=== PATIENT | male | born 1940 | race Caucasian/White ===

== ENCOUNTER 2016-07-27 14:57 | Inpatient (IN) | payer MEDICARE, MEDICAID ==
[2016-07-27 16:19] LABS: Hematocrit 48 % (42-52); Hemoglobin 16.2 g/dl (14.0-18.0); Mean Corpuscular HGB Conc 34 g/dl (31-36); Mean Corpuscular Hemoglobin 30 pg (27-31); Mean Corpuscular Volume 89 fL (80-94); Mean Platelet Volume 9 um3 (7.4-10.4); Red Blood Count 5.43 10^6/ul (4.0-5.4); Red Cell Distribution Width 14 % (10.5-15); White Blood Count 8.2 10^3/ul (3.5-10.8)
[2016-07-27 16:41] LABS: Albumin 3.6 g/dL (3.2-5.2); BUN/Creatinine Ratio 18.5 (8-20); C Reactive Protein 15.17 mg/L (< 5.00); EGFR African American 103.4 (>60); EGFR Non-African American 80.4 (>60); Globulin 3.4 g/dL (2-4); Potassium 3.3 mmol/L (3.5-5.0); Total Bilirubin 1.1 mg/dL (0.2-1.0)
[2016-07-27 16:45] LABS: Troponin I 1.19 ng/mL (<0.04)
--- NOTE | 2016-07-27 18:18 | RAD ---
Indication: Chest pain. Bilateral lower leg edema. Single frontal view of the chest performed at 1755 hours was reviewed. No prior study is available for comparison. No mediastinal shift is noted. Heart is of normal size and configuration. There may be a small right pleural effusion noted. No alveolar consolidation is noted. IMPRESSION: LIKELY RIGHT PLEURAL EFFUSION.
--- NOTE | 2016-07-27 19:30 | RAD ---
Indication: Bilateral Leg edema. Duplex Doppler sonography of the deep venous system of both lower extremities was performed. Bilaterally the common femoral veins, proximal greater saphenous veins, proximal deep femoral veins, femoral veins, popliteal veins, posterior tibial veins and peroneal veins appear patent and compressible. IMPRESSION: NO EVIDENCE OF DEEP VENOUS THROMBOSIS OF EITHER LOWER EXTREMITY IS PRESENT.
--- NOTE | 2016-07-27 20:36 | ED ---
Virgilio Garcia Billy, scribed for Jeison Miranda MD on 07/27/16 at 1753 . Lower Extremity - HPI Summary HPI Summary: Patient is a 75 year-old male coming to [facility] presenting with constant bilateral extremity edema for 3 days. Nothing makes his symptoms better/worse. Denies any fevers or chills. Denies chest pain. Patient had a recent pulmonary embolism and is currently taking Xarelto. Recent diagnosis of pneumonia, treated and hospitalized in [place]. Patient also takes Lasix, potassium, Protonix, and was recently prescribed Keflex by his PCP. Patient was treated with Levaquin initially, but there was concern that his increased lower extremity swelling was related to his Levaquin treatment, which prompted the switch to Keflex. He also recently switched from Nexium to Protonix. - History of Current Complaint Chief Complaint: EDExtremityLower Stated Complaint: SWOLLEN LEGS Time Seen by Provider: 07/27/16 17:25 Hx Obtained From: Patient Mechanism Of Injury: Unknown Onset of Pain: Days Severity Initially: Moderate Severity Currently: Moderate Timing: Constant Location: Is Discrete @ - bilateral Associated Signs And Symptoms: Positive: Swelling Aggravating Factor(s): Nothing Alleviating Factor(s): Nothing - Allergies/Home Medications Allergies/Adverse Reactions: Allergies Allergy/AdvReac Type Severity Reaction Status Date / Time No Known Allergies Allergy Verified 11/30/14 12:36 PMH/Surg Hx/FS Hx/Imm Hx Endocrine/Hematology History: Denies: Hx Diabetes Respiratory History: Reports: Hx Pneumonia, Hx Pulmonary Embolism - Cancer History Cancer Type, Location and Year: melanoma about 4 years ago Infectious Disease History: No Infectious Disease History: Denies: Traveled Outside the [place] in Last 30 Days - Family History Family History: No FHx of blood clots. - Social History Alcohol Use: None Substance Use Type: Reports: None Smoking Status (MU): Never Smoked Tobacco Review of Systems Negative: Fever, Chills Negative: Chest Pain Positive: Edema All Other Systems Reviewed And Are Negative: Yes Physical Exam Triage Information Reviewed: Yes Vital Signs On Initial Exam: Initial Vitals Temp Pulse Resp BP Pulse Ox 97.2 F 98 18 129/70 98 07/27/16 15:02 07/27/16 15:02 07/27/16 15:02 07/27/16 15:02 02/23/17 15:02 Vital Signs Reviewed: Yes Appearance: Positive: Well-Appearing, No Pain Distress Skin: Positive: Warm, Skin Color Reflects Adequate Perfusion, Weeping Skin/ Lesions - Weeping bilat lower extremity, Erythema @ - Bilat lower extremity, L>R Head/Face: Positive: Normal Head/Face Inspection Eyes: Positive: EOMI, QUOC Neck: Positive: Supple, Nontender Respiratory/Lung Sounds: Positive: Clear to Auscultation, Breath Sounds Present Cardiovascular: Positive: RRR Abdomen Description: Positive: Nontender, Soft Musculoskeletal: Positive: Edema Left - Extensive lower extremity edema, Edema Right - Extensive lower extremity edema Neurological: Positive: Normal, Sensory/Motor Intact, Alert, Oriented to Person Place, Time Psychiatric: Positive: Affect/Mood Appropriate Diagnostics - Vital Signs Vital Signs Temp Pulse Resp BP Pulse Ox 07/27/16 16:18 98.9 F 58 18 102/65 98 07/27/16 15:02 97.2 F 98 18 129/70 98 - Laboratory Lab Results: Lab Results 07/27/16 07/27/16 07/27/16 Range/Units 16:05 16:05 16:05 WBC 8.2 (3.5-10.8) 10^3/ul RBC 5.43 H (4.0-5.4) 10^6/ul Hgb 16.2 (14.0-18.0) g/dl Hct 48 (42-52) % MCV 89 (80-94) fL MCH 30 (27-31) pg MCHC 34 (31-36) g/dl RDW 14 (10.5-15) % Plt Count 284 (150-450) 10^3/ul MPV 9 (7.4-10.4) um3 Neut % (Auto) 77.0 (38-83) % Lymph % (Auto) 13.9 L (25-47) % [place] % (Auto) 7.6 (1-9) % Eos % (Auto) 0.6 (0-6) % Baso % (Auto) 0.9 (0-2) % Absolute Neuts (auto) 6.3 (1.5-7.7) 10^3/ul Absolute Lymphs (auto) 1.1 (1.0-4.8) 10^3/ul Absolute Monos (auto) 0.6 (0-0.8) 10^3/ul Absolute Eos (auto) 0.1 (0-0.6) 10^3/ul Absolute Basos (auto) 0.1 (0-0.2) 10^3/ul Absolute Nucleated RBC 0.01 10^3/ul Nucleated RBC % 0.1 INR (Anticoag Therapy) 1.56 H (0.89-1.11) APTT 34.5 (26.0-36.3) seconds Sodium 135 (133-145) mmol/L Potassium 3.3 L (3.5-5.0) mmol/L Chloride 92 L (101-111) mmol/L Carbon Dioxide 34 H (22-32) mmol/L Anion Gap 9 (2-11) mmol/L BUN 17 (6-24) mg/dL Creatinine 0.92 (0.67-1.17) mg/dL Est GFR ( Amer) 103.4 (>60) Est GFR (Non-Af Amer) 80.4 (>60) BUN/Creatinine Ratio 18.5 (8-20) Glucose 140 H (70-100) mg/dL Lactic Acid (0.5-2.0) mmol/L Calcium 9.0 (8.6-10.3) mg/dL Total Bilirubin 1.10 H (0.2-1.0) mg/dL AST 34 (13-39) U/L ALT 38 (7-52) U/L Alkaline Phosphatase 104 (34-104) U/L Troponin I 1.19 H* (<0.04) ng/mL C-Reactive Protein 15.17 H (< 5.00) mg/L B-Natriuretic Peptide ( - 100) pg/mL Total Protein 7.0 (6.4-8.9) g/dL Albumin 3.6 (3.2-5.2) g/dL Globulin 3.4 (2-4) g/dL Albumin/Globulin Ratio 1.1 (1-3) 07/27/16 07/27/16 Range/Units 16:05 16:05 WBC (3.5-10.8) 10^3/ul RBC (4.0-5.4) 10^6/ul Hgb (14.0-18.0) g/dl Hct (42-52) % MCV (80-94) fL MCH (27-31) pg MCHC (31-36) g/dl RDW (10.5-15) % Plt Count (150-450) 10^3/ul MPV (7.4-10.4) um3 Neut % (Auto) (38-83) % Lymph % (Auto) (25-47) % [place] % (Auto) (1-9) % Eos % (Auto) (0-6) % Baso % (Auto) (0-2) % Absolute Neuts (auto) (1.5-7.7) 10^3/ul Absolute Lymphs (auto) (1.0-4.8) 10^3/ul Absolute Monos (auto) (0-0.8) 10^3/ul Absolute Eos (auto) (0-0.6) 10^3/ul Absolute Basos (auto) (0-0.2) 10^3/ul Absolute Nucleated RBC 10^3/ul Nucleated RBC % INR (Anticoag Therapy) (0.89-1.11) APTT (26.0-36.3) seconds Sodium (133-145) mmol/L Potassium (3.5-5.0) mmol/L Chloride (101-111) mmol/L Carbon Dioxide (22-32) mmol/L Anion Gap (2-11) mmol/L BUN (6-24) mg/dL Creatinine (0.67-1.17) mg/dL Est GFR ( Amer) (>60) Est GFR (Non-Af Amer) (>60) BUN/Creatinine Ratio (8-20) Glucose (70-100) mg/dL Lactic Acid 1.9 (0.5-2.0) mmol/L Calcium (8.6-10.3) mg/dL Total Bilirubin (0.2-1.0) mg/dL AST (13-39) U/L ALT (7-52) U/L Alkaline Phosphatase (34-104) U/L Troponin I (<0.04) ng/mL C-Reactive Protein (< 5.00) mg/L B-Natriuretic Peptide 1509 H ( - 100) pg/mL Total Protein (6.4-8.9) g/dL Albumin (3.2-5.2) g/dL Globulin (2-4) g/dL Albumin/Globulin Ratio (1-3) Result Diagrams: 02/23/17 16:05 07/27/16 16:05 Lab Statement: Any lab studies that have been ordered have been reviewed, and results considered in the medical decision making process. - Radiology CXR Radiology Interpretation Completed By: Radiologist - Likely right pleural effusion. - Ultrasound No standard instances Ultrasound Interpretation Completed By: Radiologist - LOWER EXTREMITY ULTRASOUND : NO EVIDENCE OF DEEP VENOUS THROMBOSIS OF EITHER LOWER EXTREMITY IS PRESENT. - EKG 1729 EKG Interpretation: NSR 98 bpm, TWI in V3-V6, no ectopy. Lower Extremity Course/Dx - Course Assessment/Plan: ADMIT HOSPITALIST STABLE. - Diagnoses Provider Diagnoses: Troponin level elevated, Edema, CHF (congestive heart failure) Discharge - Discharge Plan Condition: Stable Disposition: ADMITTED TO [facility] Referrals: No Primary Care Phys,NOPCP [Primary Care Provider] - The documentation as recorded by the Virgilio null Billy accurately reflects the service I personally performed and the decisions made by me, Jeison Miranda MD.
[2016-07-27] MEDS ORDERED: Furosemide IV* 10 MG/ML 10 ML VIAL (100 MG) IV ONE (20:44)
[2016-07-27] MEDS ORDERED: Acetaminophen TAB* 325 MG PO PRN (20:52)
[2016-07-27] MEDS ORDERED: Cephalexin CAP* 500 MG PO SCH (21:00)
[2016-07-27] MEDS ORDERED: Furosemide TAB* 40 MG PO SCH (21:00)
[2016-07-27] MEDS ORDERED: Aspirin EC TAB* 325 MG PO ONE (21:07)
[2016-07-27] MEDS: ceFAZolin 1 GM in Dextrose (*) 1 GM/50 ML BAG IVPB SCH (21:15)
[2016-07-27] MEDS: Rivaroxaban TAB(*) 15 MG PO SCH (23:33)
--- NOTE | 2016-07-27 23:42 | HP ---
HOSPITAL MEDICINE HISTORY AND PHYSICAL: DATE OF ADMISSION: 07/27/16 PRIMARY CARE PHYSICIAN: Dr. Adair. ATTENDING PHYSICIAN: Carlos Zapata MD *(dictation provided by Karen Patel NP). CHIEF COMPLAINT: Bilateral lower extremity swelling and redness. HISTORY OF PRESENT ILLNESS: Mr. Castaneda is a 75-year-old male who was otherwise healthy up until July of this year at which time, he was admitted to [facility] on 07/15/16 for pneumonia. The patient states he was in the hospital for 4 days. Following the hospital, he was initially treated for pneumonia, but for reasons that were not clear to him there was suspicion for a clot in the lung and he did go in for a CTA of the chest, which did show pulmonary emboli. The patient was ultimately started on Xarelto and discharged to home to follow up with a automotive dismantler and his primary care physician. The patient states when he was discharged in the hospital he was feeling at "about 75% of baseline." He did have pain in his lower extremities, but did not notice swelling. Mr. Castaneda states he did follow up with the automotive dismantler and with his primary care physician. He saw his primary care physician on 07/21/16, by which time he had significant swelling in bilateral lower extremities as well as erythema and clear weeping drainage. The primary care physician started him on cephalexin and furosemide. When the furosemide was not effective in decreasing the swelling in the legs, this was increased to twice daily per the patient's report. The patient has seen no improvement in the swelling of his legs or the redness or drainage. He states that he does try to keep them elevated as much as possible, but he has not really seen any improvement. He denies any fevers, any chills, any chest pain, any shortness of breath. He has a cough here today in the emergency room but he states he has not had a cough recently since being treated for pneumonia at [place]. He has had a very poor appetite and states that things do not taste good to him. He has no problems urinating. No problems with bowel movements. He does not weigh himself on a regular basis. In the emergency room, Mr. Castaneda is confirmed to have significant bilateral cellulitis and edema with weeping drainage. The labs surprisingly showed troponin of 1.19 and BNP of 1509. His labs are otherwise only remarkable for low potassium at 3.3. His chest x-ray shows concern for right pleural effusion. Doppler of the lower extremities is negative. His EKG shows concern for ST depressions. They are minimal in V3 through V6. Based on Mr. Castaneda's presentation with elevated troponin with non-ST elevation [facility] in the setting of a recent diagnosis of pulmonary embolism, now with bilateral lower extremity edema, elevated BNP, and right pleural effusion with concern for CHF, Hospital Medicine was called regarding admission. PAST MEDICAL HISTORY: 1. Multiple episodes of cellulitis to bilateral lower extremities. 2. Recent admission to [facility] for pneumonia during which time he was found to have a pulmonary embolism. MEDICATIONS: 1. Cephalexin 500 mg p.o. 4 times a day. 2. Furosemide 40 mg p.o. b.i.d., started 07/26/16. 3. Pantoprazole 40 mg p.o. daily. 4. Potassium chloride 10 mEq p.o. daily. 5. Xarelto 15 mg p.o. b.i.d. ALLERGIES: No known drug allergies. FAMILY HISTORY: The patient reports his mother from a heart attack at 82 and father was electrocuted when the patient was 17 months old. SOCIAL HISTORY: No report of alcohol, tobacco, or drug use. The patient is a alvarez. He lives with his son who is the healthcare proxy along with the daughter. REVIEW OF SYSTEMS: A 14-point review of systems was completed with Mr. Castaneda and all those not mentioned above were negative. PHYSICAL EXAMINATION GENERAL: Mr. Castaneda is lying in the bed. He is in no acute distress. He is calm and cooperative to my examination. VITAL SIGNS: Temperature 98.9, heart rate 90, respiratory rate 19, O2 saturation 93% on room air, and blood pressure 104/64. LUNGS: Clear to auscultation with some diminishment in the right base. HEART: S1, S2. No murmur, rub, or gallop today. ABDOMEN: Soft, nontender with bowel sounds positive x4. EXTREMITIES: The patient has bilateral lower extremity swelling 3 to 4+ in his feet extending up to his knee. He has erythema from the knee down to the ankle and onto the foot. He has cleared weeping drainage. There are multiple small open areas, but no purulence. NEURO: He is alert and oriented x3. He moves all extremities equally. There is no facial asymmetry or focal weakness. Extraocular movements are intact. DIAGNOSTIC STUDIES/LAB DATA: Sodium 135, potassium 3.3, chloride 92, serum bicarbonate 34, BUN 17, creatinine 0.92, glucose 140. Troponin 1.19. CRP 15.7. BNP 1509. WBC 8.2, hemoglobin 16.2, hematocrit 48, platelet count 284. INR 1.56. Chest x-ray shows a right pleural effusion. Venous Doppler shows "no evidence of deep venous thrombosis of either lower extremity is present." EKG shows a sinus rhythm and heart rate of approximately [address] depressions in V3 through V6. ASSESSMENT AND PLAN: Mr. Castaneda is a 75-year-old male with no significant past medical history until July of this year at which time, he was admitted to [facility] for pneumonia, then found to have a pulmonary embolism and discharged to home on Xarelto. The patient presents to the ER today after developing significant bilateral lower extremity edema with associated redness. In the emergency room, he has been found to have an elevated troponin with a non-ST elevation myocardial infarction and concern for congestive heart failure. Plan is for inpatient admission for the followin. Non-ST elevation myocardial infarction: Second troponin is pending right now. If the troponin is going down, I plan to admit him to the telemetry unit; if it is going up, I will admit him to the intensive care unit. The patient is currently on Xarelto, I am going to add low dose aspirin. The patient will have telemetry monitoring. He will have repeat troponins for a total of 3, he will have a repeat EKG in the a.m. He will have a transthoracic echocardiogram tomorrow. I am quite suspicious that his non-ST elevation myocardial infarction is secondary to his pulmonary embolism, perhaps unmasking some coronary artery disease. We will begin with the echocardiogram and make decisions from there whether or not we need to involve Cardiology through consultation and go on to further testing. 2. Pulmonary embolism: I plan to continue on Xarelto. 3. Congestive heart failure: The patient has significant congestive heart failure and he has been on furosemide at home increased to 40 mg b.i.d. The patient says he has very little urine output even with this increase in the furosemide. I plan to give him one-time dose of 40 mg IV now in hopes that the intravenous route will be more effective. I plan to hold off on dosing of diuretic tomorrow pending on the clinical exam. He will have I's and O's monitored closely and he will have daily weights. I also plan to have his lower extremities elevated at all times. 4. Cellulitis: The patient will be on cefazolin intravenously and he will have his legs elevated at all times. 5. DVT prophylaxis: With Xarelto. 6. Disposition will be determined based on next troponin. TIME SPENT: Approximately 75 minutes were spent on the admission of this patient, more than half the time was spent with the patient at the bedside reviewing the events leading up to this hospitalization , performing physical examination, and reviewing the plan of care. KAREN PATEL NP CC: Dr. Adair* [id number]/CPS #: [id number] BASHIR
[2016-07-28] MEDS: ceFAZolin 1 GM in Dextrose (*) 1 GM/50 ML BAG IVPB SCH ×3 (05:09→21:18)
[2016-07-28 05:33] LABS: Hematocrit 45 % (42-52); Mean Corpuscular HGB Conc 33 g/dl (31-36); Mean Corpuscular Hemoglobin 30 pg (27-31); Mean Corpuscular Volume 89 fL (80-94); Mean Platelet Volume 9 um3 (7.4-10.4); Red Blood Count 5.04 10^6/ul (4.0-5.4); Red Cell Distribution Width 14 % (10.5-15); White Blood Count 7.9 10^3/ul (3.5-10.8)
[2016-07-28 05:49] LABS: Add Diff/Slide Review? Slide Review Added; Comments Flag Yes
[2016-07-28 05:54] LABS: BUN/Creatinine Ratio 18.8 (8-20); Calcium 8.6 mg/dL (8.6-10.3); EGFR African American 98.5 (>60); EGFR Non-African American 76.6 (>60); Potassium 3.2 mmol/L (3.5-5.0)
[2016-07-28] MEDS: Omeprazole CAP* 20 MG PO SCH (08:11)
[2016-07-28] MEDS: Aspirin EC Low Dose* 81 MG TAB.EC PO SCH (08:11)
[2016-07-28] MEDS: Potassium Chlor TAB* 10 MEQ TAB.ER PO SCH (08:12)
[2016-07-28] MEDS: Rivaroxaban TAB(*) 15 MG PO SCH ×2 (08:12→21:18)
--- NOTE | 2016-07-28 12:53 | ECHO ---
Patient: JUJU RUTH [facility] Rec#: [id number] : 1940 Date: 07/28/2016 Age: 75y Height: 182.9 cm / 72.0 in Weight: 96.2 kg / 212.0 lbs Sex: M BSA: 2.2 Room#: [facility] Admit Date#: 07/27/2016 Type: Inpatient Referring: Karen Patel NP Reading: Pablito Mccarty DO Wire Saw Operator: Christiana Hunter RN RDCS Transthoracic Echocardiogram Indication: NSTEMI, CHF, edema BP: 102/62 HR: 92 Rhythm: NSR Findings History: Recent pneumonia and pulmonary emboli, bilateral lower extremity edema. Technical Comments: The study is technically limited due to patient body habitus. The study was technically limited due to the patient's inability to lay in the left lateral decubitus position. Completed at 1225. Left Ventricle: The left ventricular chamber size is normal. There is global hypokinesis of the left ventricle with minor regional variation. There is severely decreased left ventricular systolic function. The estimated ejection fraction is 20-25%. The assessment of diastolic function is non-diagnostic. The patient was unable to perform a Valsalva maneuver. Left Atrium: The left atrium is mild to moderately dilated. Right Ventricle: The right ventricular cavity size is normal. The right ventricular global systolic function is mildly reduced. Right Atrium: The right atrium is mildly dilated. Aortic Valve: The aortic valve is trileaflet. The aortic valve leaflets are mildly thickened. There is aortic annular calcification.that is mild There is a trace of aortic regurgitation. There is no evidence of aortic stenosis. Mitral Valve: The mitral valve leaflets are mildly thickened. There is mild to moderate mitral regurgitation. There is no evidence of mitral stenosis. Tricuspid Valve: The tricuspid valve leaflets are normal. There is trace to mild tricuspid regurgitation. There is evidence of mild to moderate pulmonary hypertension. Pulmonic Valve: The pulmonic valve appears normal. There is a trace pulmonic regurgitation. There is no pulmonic stenosis. Pericardium: There is no significant pericardial effusion. Aorta: There is no dilatation of the ascending aorta. There is no dilatation of the aortic arch. There is mild dilatation of the aortic root. Pulmonary Artery: The main pulmonary artery appears normal. Venous: The inferior vena cava appears normal in size. There is a greater than 50% respiratory change in the inferior vena cava dimension. Conclusions The left ventricular chamber size is normal. There is global hypokinesis of the left ventricle with minor regional variation. [place] not well visualized. There is severely decreased left ventricular systolic function. The estimated ejection fraction is 20-25%. The left atrium is mild to moderately dilated. The right ventricular cavity size is normal. The right ventricular global systolic function is mildly reduced. There is mild to moderate mitral regurgitation. There is evidence of mild to moderate pulmonary hypertension. No prior studies available for comparison at time of interpretation. Measurements Name Value Normal Range RVIDd (AP) 2D 3.4 cm (0.9 - 2.6) RVDdMajor (2D) 4.3 cm (2.2 - 4.4) RAd ISD 4CH 5.2 cm (3.4 - 4.9) RA (A4C)W 4.9 cm (2.9 - 4.6) IVSd (2D) 1.1 cm (0.6 - 1) LVPWd (2D) 1.1 cm (0.6 - 1) LVIDd (2D) 5 cm (3.6 - 5.4) LVIDs (2D) 4.3 cm - LV FS (2D) 14 % (25 - 45) Aortic Annulus 2.6 cm (1.4 - 2.6) Ao root diameter (2D) 3.8 cm (2.1 - 3.5) Ascending Ao 3.4 cm (2.1 - 3.4) Aortic arch 2.6 cm (1.8 - 3.4) LA dimension (AP) 2D 4.8 cm (2.3 - 3.8) LAd ISD 4CH 5.8 cm (2.9 - 5.3) LA ISD 4CH W 4.9 cm (2.5 - 4.5) Name Value Normal Range LA ESV SP 4CH (A/L) 74 ml - LA ESV SP 2CH (A/L) 108 ml - LA ESV BP (A/L) 89 ml - LA ESV BP (A/L) index 41 ml/m2 - LA ESV SP 4CH (MOD) 71 ml - LA ESV SP 2CH (MOD) 102 ml - Name Value Normal Range MV E-wave Vmax 0.83 m/sec - MV deceleration time 237 msec - MV A-wave Vmax 0.56 m/sec - MV E:A ratio 1.5 ratio - LV septal e' Vmax 0.05 m/sec - LV lateral e' Vmax 0.08 m/sec - LV E:e' septal ratio 16.6 ratio - LV E:e' lateral ratio 10.4 ratio - Name Value Normal Range AV Vmax 1.1 m/sec - AV VTI 19.2 cm - AV peak gradient 5 mmHg - AV mean gradient 3 mmHg - LVOT Vmax 0.77 m/sec - LVOT VTI 12.9 cm - RYAN Vmax 0.42 m/sec - Name Value Normal Range TR Vmax 3.2 m/sec - TR peak gradient 41 mmHg - RAP 3 mmHg - RVSP 44 mmHg - IVC diameter 1.3 cm - Name Value Normal Range PV Vmax 0.9 m/sec -
--- NOTE | 2016-07-28 15:31 | PN ---
Subjective Date of Service: 07/28/16 Interval History: Feels much better, reports passing much urine since IV furosemide 9 PM last evening. No SOB. Legs less swollen per patient. Objective Active Medications: Acetaminophen (Tylenol Tab*) 650 mg PO Q6H PRN PRN Reason: PAIN Aspirin (Aspirin Ec Low Dose*) 81 mg PO DAILY [facility] Last Admin: 07/28/16 08:11 Dose: 81 mg Cefazolin Sodium/Dextrose (Kefzol 1 Gm In Dextrose Duplex (*)) 1 gm in 50 mls @ 200 mls/hr IVPB Q8H [facility] Last Admin: 07/28/16 13:24 Dose: 200 mls/hr Omeprazole (Prilosec Cap*) 20 mg PO DAILY [facility] Last Admin: 07/28/16 08:11 Dose: 20 mg Potassium Chloride (Klor Con Er Tab*) 10 meq PO DAILY [facility] Last Admin: 07/28/16 08:12 Dose: 10 meq Rivaroxaban (Xarelto(*)) 15 mg PO BID [facility] Last Admin: 07/28/16 08:12 Dose: 15 mg Vital Signs 07/27/16 07/27/16 07/27/16 22:00 22:01 22:29 Temperature 98.5 F Pulse Rate 84 85 80 Respiratory 20 Rate Blood Pressure 96/60 98/62 (mmHg) O2 Sat by Pulse 99 98 Oximetry 07/27/16 07/27/16 07/27/16 22:30 23:11 23:13 Temperature 97.8 F 97.8 F Pulse Rate 84 68 68 Respiratory 16 Rate Blood Pressure 113/69 113/69 (mmHg) O2 Sat by Pulse 99 65 99 Oximetry 07/27/16 07/27/16 07/28/16 23:31 23:38 03:24 Temperature 98.0 F 98.0 F Pulse Rate 83 82 Respiratory 16 16 16 Rate Blood Pressure 98/59 97/56 (mmHg) O2 Sat by Pulse 98 93 Oximetry 07/28/16 07/28/16 07/28/16 08:00 08:05 15:12 Temperature 97.9 F 97.7 F Pulse Rate 90 86 Respiratory 18 16 19 Rate Blood Pressure 102/62 99/62 (mmHg) O2 Sat by Pulse 100 99 Oximetry Oxygen Devices in Use Now: None Appearance: Alert, sitting on the edge of the bed. In good spirits. Looks comfortable. Eyes: No Scleral Icterus, PERRLA Ears/Nose/Mouth/Throat: Clear Oropharnyx, Mucous Membranes Moist Neck: NL Appearance and Movements; NL JVP, No Thyroid Enlargement, Masses Respiratory: Symmetrical Chest Expansion and Respiratory Effort, Clear to Auscultation, Clear to Percussion Cardiovascular: NL Sounds; No Murmurs; No JVD, RRR, No Edema, - Extremities: No Clubbing, Cyanosis, - - 1+ edema BL Skin: - - Both lower legs diffusely red. Scattered old ecchymoses/eschars. Neurological: Alert and Oriented x 3, NL Sensation Result Diagrams: 07/28/16 05:20 07/28/16 05:20 Additional Lab and Data: Lab Results 07/27/16 07/27/16 07/27/16 Range/Units 16:05 16:05 16:05 WBC 8.2 (3.5-10.8) 10^3/ul RBC 5.43 H (4.0-5.4) 10^6/ul Hgb 16.2 (14.0-18.0) g/dl Hct 48 (42-52) % MCV 89 (80-94) fL MCH 30 (27-31) pg MCHC 34 (31-36) g/dl RDW 14 (10.5-15) % Plt Count 284 (150-450) 10^3/ul MPV 9 (7.4-10.4) um3 Neut % (Auto) 77.0 (38-83) % Lymph % (Auto) 13.9 L (25-47) % [place] % (Auto) 7.6 (1-9) % Eos % (Auto) 0.6 (0-6) % Baso % (Auto) 0.9 (0-2) % Absolute Neuts (auto) 6.3 (1.5-7.7) 10^3/ul Absolute Lymphs (auto) 1.1 (1.0-4.8) 10^3/ul Absolute Monos (auto) 0.6 (0-0.8) 10^3/ul Absolute Eos (auto) 0.1 (0-0.6) 10^3/ul Absolute Basos (auto) 0.1 (0-0.2) 10^3/ul Absolute Nucleated RBC 0.01 10^3/ul Nucleated RBC % 0.1 INR (Anticoag Therapy) 1.56 H (0.89-1.11) APTT 34.5 (26.0-36.3) seconds Sodium 135 (133-145) mmol/L Potassium 3.3 L (3.5-5.0) mmol/L Chloride 92 L (101-111) mmol/L Carbon Dioxide 34 H (22-32) mmol/L Anion Gap 9 (2-11) mmol/L BUN 17 (6-24) mg/dL Creatinine 0.92 (0.67-1.17) mg/dL Est GFR ( Amer) 103.4 (>60) Est GFR (Non-Af Amer) 80.4 (>60) BUN/Creatinine Ratio 18.5 (8-20) Glucose 140 H (70-100) mg/dL Lactic Acid (0.5-2.0) mmol/L Calcium 9.0 (8.6-10.3) mg/dL Total Bilirubin 1.10 H (0.2-1.0) mg/dL AST 34 (13-39) U/L ALT 38 (7-52) U/L Alkaline Phosphatase 104 (34-104) U/L Troponin I 1.19 H* (<0.04) ng/mL C-Reactive Protein 15.17 H (< 5.00) mg/L B-Natriuretic Peptide ( - 100) pg/mL Total Protein 7.0 (6.4-8.9) g/dL Albumin 3.6 (3.2-5.2) g/dL Globulin 3.4 (2-4) g/dL Albumin/Globulin Ratio 1.1 (1-3) 07/27/16 07/27/16 Range/Units 16:05 16:05 WBC (3.5-10.8) 10^3/ul RBC (4.0-5.4) 10^6/ul Hgb (14.0-18.0) g/dl Hct (42-52) % MCV (80-94) fL MCH (27-31) pg MCHC (31-36) g/dl RDW (10.5-15) % Plt Count (150-450) 10^3/ul MPV (7.4-10.4) um3 Neut % (Auto) (38-83) % Lymph % (Auto) (25-47) % [place] % (Auto) (1-9) % Eos % (Auto) (0-6) % Baso % (Auto) (0-2) % Absolute Neuts (auto) (1.5-7.7) 10^3/ul Absolute Lymphs (auto) (1.0-4.8) 10^3/ul Absolute Monos (auto) (0-0.8) 10^3/ul Absolute Eos (auto) (0-0.6) 10^3/ul Absolute Basos (auto) (0-0.2) 10^3/ul Absolute Nucleated RBC 10^3/ul Nucleated RBC % INR (Anticoag Therapy) (0.89-1.11) APTT (26.0-36.3) seconds Sodium (133-145) mmol/L Potassium (3.5-5.0) mmol/L Chloride (101-111) mmol/L Carbon Dioxide (22-32) mmol/L Anion Gap (2-11) mmol/L BUN (6-24) mg/dL Creatinine (0.67-1.17) mg/dL Est GFR ( Amer) (>60) Est GFR (Non-Af Amer) (>60) BUN/Creatinine Ratio (8-20) Glucose (70-100) mg/dL Lactic Acid 1.9 (0.5-2.0) mmol/L Calcium (8.6-10.3) mg/dL Total Bilirubin (0.2-1.0) mg/dL AST (13-39) U/L ALT (7-52) U/L Alkaline Phosphatase (34-104) U/L Troponin I (<0.04) ng/mL C-Reactive Protein (< 5.00) mg/L B-Natriuretic Peptide 1509 H ( - 100) pg/mL Total Protein (6.4-8.9) g/dL Albumin (3.2-5.2) g/dL Globulin (2-4) g/dL Albumin/Globulin Ratio (1-3) Assess/Plan/Problems-Billing Assessment: - Patient Problems (1) Cardiomyopathy Current Visit: Yes Status: Acute Code(s): I42.9 - CARDIOMYOPATHY, UNSPECIFIED SNOMED Code(s): 87520922 Comment: Start BB, ACEI, statin, spironolactone. Continue ASA. Torsemide po starting 07/29. BMP 07/29. Can have stress test as oupt. (2) Cellulitis and abscess of leg Current Visit: Yes Status: Acute Code(s): L02.419 - CUTANEOUS ABSCESS OF LIMB, UNSPECIFIED; L03.119 - CELLULITIS OF UNSPECIFIED PART OF LIMB SNOMED Code(s): 412749523 Comment: Cellulitis only, both legs. Continue IV cefazolin. Pt encouraged to elevate his legs as much as possible.
[2016-07-28] MEDS: Atorvastatin* 20 MG TAB PO SCH ×2 (17:15→17:54)
[2016-07-28] MEDS: Metoprolol Tartrate TAB* 25 MG PO SCH (21:24)
[2016-07-29] MEDS: ceFAZolin 1 GM in Dextrose (*) 1 GM/50 ML BAG IVPB SCH ×3 (04:59→21:00)
[2016-07-29 06:14] LABS: BUN/Creatinine Ratio 21.3 (8-20); Calcium 8.6 mg/dL (8.6-10.3); EGFR African American 130.9 (>60); EGFR Non-African American 101.8 (>60); Potassium 3.5 mmol/L (3.5-5.0)
[2016-07-29] MEDS: Omeprazole CAP* 20 MG PO SCH (08:53)
[2016-07-29] MEDS: Aspirin EC Low Dose* 81 MG TAB.EC PO SCH (08:53)
[2016-07-29] MEDS: Potassium Chlor TAB* 10 MEQ TAB.ER PO SCH (08:53)
[2016-07-29] MEDS: Rivaroxaban TAB(*) 15 MG PO SCH ×2 (08:53→21:00)
[2016-07-29] MEDS ORDERED: Lisinopril TAB* 5 MG PO SCH (09:00)
[2016-07-29] MEDS ORDERED: Torsemide TAB* 20 MG PO SCH ×3 (09:00→10:40)
[2016-07-29] MEDS: Metoprolol Tartrate TAB* 25 MG PO SCH ×2 (11:47→21:00)
[2016-07-29] MEDS: Spironolactone TAB* 25 MG PO SCH (11:48)
--- NOTE | 2016-07-29 12:58 | PN ---
Subjective Date of Service: 07/29/16 Interval History: Feels better, feels his legs look better too. No new c/o. Objective Active Medications: Acetaminophen (Tylenol Tab*) 650 mg PO Q6H PRN PRN Reason: PAIN Aspirin (Aspirin Ec Low Dose*) 81 mg PO DAILY [facility] Last Admin: 07/29/16 08:53 Dose: 81 mg Atorvastatin Calcium (Lipitor*) 20 mg PO 1700 [facility] Last Admin: 07/28/16 17:54 Dose: 20 mg Cefazolin Sodium/Dextrose (Kefzol 1 Gm In Dextrose Duplex (*)) 1 gm in 50 mls @ 200 mls/hr IVPB Q8H [facility] Last Admin: 07/29/16 04:59 Dose: 200 mls/hr Metoprolol Tartrate (Lopressor Tab*) 12.5 mg PO Q12HR [facility] Last Admin: 07/29/16 11:47 Dose: 12.5 mg Omeprazole (Prilosec Cap*) 20 mg PO DAILY [facility] Last Admin: 07/29/16 08:53 Dose: 20 mg Potassium Chloride (Klor Con Er Tab*) 10 meq PO DAILY [facility] Last Admin: 07/29/16 08:53 Dose: 10 meq Rivaroxaban (Xarelto(*)) 15 mg PO BID [facility] Last Admin: 07/29/16 08:53 Dose: 15 mg Spironolactone (Aldactone Tab*) 25 mg PO DAILY [facility] Last Admin: 07/29/16 11:48 Dose: Not Given Torsemide (Demadex*) 20 mg PO DAILY [facility] Vital Signs 07/28/16 07/28/16 07/28/16 15:12 19:46 20:00 Temperature 97.7 F 97.5 F Pulse Rate 86 96 Respiratory 19 18 16 Rate Blood Pressure 99/62 110/59 (mmHg) O2 Sat by Pulse 99 100 Oximetry 07/28/16 07/29/16 07/29/16 23:35 03:22 07:27 Temperature 97.7 F 97.4 F 98.4 F Pulse Rate 78 78 88 Respiratory 16 16 16 Rate Blood Pressure 91/58 96/57 102/60 (mmHg) O2 Sat by Pulse 97 98 95 Oximetry 07/29/16 07/29/16 07/29/16 10:37 11:23 11:24 Temperature 97.7 F Pulse Rate 83 Respiratory 18 Rate Blood Pressure 90/60 98/70 86/70 (mmHg) O2 Sat by Pulse 98 Oximetry Oxygen Devices in Use Now: None Appearance: Alert, sitting up in bed. In good spirits. Looks comfortable. Eyes: No Scleral Icterus Ears/Nose/Mouth/Throat: Clear Oropharnyx Neck: NL Appearance and Movements; NL JVP, No Thyroid Enlargement, Masses Respiratory: Symmetrical Chest Expansion and Respiratory Effort, Clear to Auscultation, Clear to Percussion Abdominal: NL Sounds; No Tenderness; No Distention, No Hepatosplenomegaly, - Extremities: No Clubbing, Cyanosis, - - 1+ edema BL, same or sl less than yesterday Skin: No Nodules or Sclerosis, - - erythema both lower legs sl better than yesterday. Neurological: Alert and Oriented x 3, NL Sensation Result Diagrams: 07/28/16 05:20 07/29/16 04:59 Additional Lab and Data: Lab Results 07/27/16 07/27/16 07/27/16 Range/Units 16:05 16:05 16:05 WBC 8.2 (3.5-10.8) 10^3/ul RBC 5.43 H (4.0-5.4) 10^6/ul Hgb 16.2 (14.0-18.0) g/dl Hct 48 (42-52) % MCV 89 (80-94) fL MCH 30 (27-31) pg MCHC 34 (31-36) g/dl RDW 14 (10.5-15) % Plt Count 284 (150-450) 10^3/ul MPV 9 (7.4-10.4) um3 Neut % (Auto) 77.0 (38-83) % Lymph % (Auto) 13.9 L (25-47) % [place] % (Auto) 7.6 (1-9) % Eos % (Auto) 0.6 (0-6) % Baso % (Auto) 0.9 (0-2) % Absolute Neuts (auto) 6.3 (1.5-7.7) 10^3/ul Absolute Lymphs (auto) 1.1 (1.0-4.8) 10^3/ul Absolute Monos (auto) 0.6 (0-0.8) 10^3/ul Absolute Eos (auto) 0.1 (0-0.6) 10^3/ul Absolute Basos (auto) 0.1 (0-0.2) 10^3/ul Absolute Nucleated RBC 0.01 10^3/ul Nucleated RBC % 0.1 INR (Anticoag Therapy) 1.56 H (0.89-1.11) APTT 34.5 (26.0-36.3) seconds Sodium 135 (133-145) mmol/L Potassium 3.3 L (3.5-5.0) mmol/L Chloride 92 L (101-111) mmol/L Carbon Dioxide 34 H (22-32) mmol/L Anion Gap 9 (2-11) mmol/L BUN 17 (6-24) mg/dL Creatinine 0.92 (0.67-1.17) mg/dL Est GFR ( Amer) 103.4 (>60) Est GFR (Non-Af Amer) 80.4 (>60) BUN/Creatinine Ratio 18.5 (8-20) Glucose 140 H (70-100) mg/dL Lactic Acid (0.5-2.0) mmol/L Calcium 9.0 (8.6-10.3) mg/dL Total Bilirubin 1.10 H (0.2-1.0) mg/dL AST 34 (13-39) U/L ALT 38 (7-52) U/L Alkaline Phosphatase 104 (34-104) U/L Troponin I 1.19 H* (<0.04) ng/mL C-Reactive Protein 15.17 H (< 5.00) mg/L B-Natriuretic Peptide ( - 100) pg/mL Total Protein 7.0 (6.4-8.9) g/dL Albumin 3.6 (3.2-5.2) g/dL Globulin 3.4 (2-4) g/dL Albumin/Globulin Ratio 1.1 (1-3) 07/27/16 07/27/16 Range/Units 16:05 16:05 WBC (3.5-10.8) 10^3/ul RBC (4.0-5.4) 10^6/ul Hgb (14.0-18.0) g/dl Hct (42-52) % MCV (80-94) fL MCH (27-31) pg MCHC (31-36) g/dl RDW (10.5-15) % Plt Count (150-450) 10^3/ul MPV (7.4-10.4) um3 Neut % (Auto) (38-83) % Lymph % (Auto) (25-47) % [place] % (Auto) (1-9) % Eos % (Auto) (0-6) % Baso % (Auto) (0-2) % Absolute Neuts (auto) (1.5-7.7) 10^3/ul Absolute Lymphs (auto) (1.0-4.8) 10^3/ul Absolute Monos (auto) (0-0.8) 10^3/ul Absolute Eos (auto) (0-0.6) 10^3/ul Absolute Basos (auto) (0-0.2) 10^3/ul Absolute Nucleated RBC 10^3/ul Nucleated RBC % INR (Anticoag Therapy) (0.89-1.11) APTT (26.0-36.3) seconds Sodium (133-145) mmol/L Potassium (3.5-5.0) mmol/L Chloride (101-111) mmol/L Carbon Dioxide (22-32) mmol/L Anion Gap (2-11) mmol/L BUN (6-24) mg/dL Creatinine (0.67-1.17) mg/dL Est GFR ( Amer) (>60) Est GFR (Non-Af Amer) (>60) BUN/Creatinine Ratio (8-20) Glucose (70-100) mg/dL Lactic Acid 1.9 (0.5-2.0) mmol/L Calcium (8.6-10.3) mg/dL Total Bilirubin (0.2-1.0) mg/dL AST (13-39) U/L ALT (7-52) U/L Alkaline Phosphatase (34-104) U/L Troponin I (<0.04) ng/mL C-Reactive Protein (< 5.00) mg/L B-Natriuretic Peptide 1509 H ( - 100) pg/mL Total Protein (6.4-8.9) g/dL Albumin (3.2-5.2) g/dL Globulin (2-4) g/dL Albumin/Globulin Ratio (1-3) Assess/Plan/Problems-Billing Assessment: - Patient Problems (1) Cardiomyopathy Current Visit: Yes Status: Acute Code(s): I42.9 - CARDIOMYOPATHY, UNSPECIFIED SNOMED Code(s): 27598843 Comment: Start BB 05/28 (Pt refused dose 07/28), statin, spironolactone. Continue ASA. Torsemide po starting 07/29. BMP 07/29. No output recorded for . Can have stress test as outpt. (2) Cellulitis and abscess of leg Current Visit: Yes Status: Acute Code(s): L02.419 - CUTANEOUS ABSCESS OF LIMB, UNSPECIFIED; L03.119 - CELLULITIS OF UNSPECIFIED PART OF LIMB SNOMED Code(s): 227198420 Comment: Cellulitis only, both legs. Continue IV cefazolin. Pt encouraged to elevate his legs as much as possible. Slowly improving, will be appropriate for outpt oral tx by 07/30. (3) Pulmonary embolism Current Visit: Yes Status: Acute Code(s): I26.99 - OTHER PULMONARY EMBOLISM WITHOUT ACUTE COR PULMONALE SNOMED Code(s): 52986100 Comment: Continue rivaroxaban.
[2016-07-29] MEDS: Atorvastatin* 20 MG TAB PO SCH (16:18)
[2016-07-30] MEDS: ceFAZolin 1 GM in Dextrose (*) 1 GM/50 ML BAG IVPB SCH ×2 (04:47→12:42)
[2016-07-30] MEDS: Rivaroxaban TAB(*) 15 MG PO SCH (08:14)
[2016-07-30] MEDS: Potassium Chlor TAB* 10 MEQ TAB.ER PO SCH (08:14)
[2016-07-30] MEDS: Omeprazole CAP* 20 MG PO SCH (08:14)
[2016-07-30] MEDS: Aspirin EC Low Dose* 81 MG TAB.EC PO SCH (08:14)
[2016-07-30] MEDS: Spironolactone TAB* 25 MG PO SCH (08:15)
[2016-07-30] MEDS: Metoprolol Tartrate TAB* 25 MG PO SCH ×2 (08:15→21:01)
[2016-07-30] MEDS ORDERED: Torsemide TAB* 20 MG PO ONE (11:59)
[2016-07-30] MEDS ORDERED: Torsemide TAB* 20 MG PO SCH (12:00)
--- NOTE | 2016-07-30 12:29 | DCNOTE ---
Subjective Date of Service: 07/30/16 Interval History: No orthopnea or dyspnea, cough or chest pain. He is concerned about the bleeding from his legs. He states a blister on his leg broke and bled. Objective Active Medications: Acetaminophen (Tylenol Tab*) 650 mg PO Q6H PRN PRN Reason: PAIN Aspirin (Aspirin Ec Low Dose*) 81 mg PO DAILY [facility] Last Admin: 07/30/16 08:14 Dose: 81 mg Atorvastatin Calcium (Lipitor*) 20 mg PO 1700 [facility] Last Admin: 07/29/16 16:18 Dose: 20 mg Cephalexin HCl (Keflex Cap*) 500 mg PO TID [facility] Cefazolin Sodium/Dextrose (Kefzol 1 Gm In Dextrose Duplex (*)) 1 gm in 50 mls @ 200 mls/hr IVPB Q8H [facility] Stop: 07/30/16 17:00 Last Admin: 07/30/16 04:47 Dose: 200 mls/hr Metoprolol Tartrate (Lopressor Tab*) 12.5 mg PO Q12HR [facility] Last Admin: 07/30/16 08:15 Dose: 12.5 mg Omeprazole (Prilosec Cap*) 20 mg PO DAILY [facility] Last Admin: 07/30/16 08:14 Dose: 20 mg Potassium Chloride (Klor Con Er Tab*) 10 meq PO DAILY [facility] Last Admin: 07/30/16 08:14 Dose: 10 meq Rivaroxaban (Xarelto(*)) 15 mg PO BID [facility] Last Admin: 07/30/16 08:14 Dose: 15 mg Spironolactone (Aldactone Tab*) 25 mg PO DAILY [facility] Last Admin: 07/30/16 08:15 Dose: 25 mg Torsemide (Demadex*) 40 mg PO DAILY [facility] Vital Signs 07/29/16 07/29/16 07/29/16 13:29 15:51 19:52 Temperature 98.0 F 98.4 F Pulse Rate 109 78 Respiratory 16 16 Rate Blood Pressure 92/62 84/67 101/60 (mmHg) O2 Sat by Pulse 97 98 Oximetry 07/29/16 07/29/16 07/30/16 19:58 23:30 03:31 Temperature 97.5 F 97.9 F Pulse Rate 83 78 Respiratory 16 16 16 Rate Blood Pressure 104/59 92/61 (mmHg) O2 Sat by Pulse 99 95 Oximetry 07/30/16 07:48 Temperature 98.2 F Pulse Rate 88 Respiratory 16 Rate Blood Pressure 102/70 (mmHg) O2 Sat by Pulse 98 Oximetry Oxygen Devices in Use Now: None Appearance: Alert, sitting on the edge of his bed. In good spirits. Looks comfortable. Eyes: No Scleral Icterus Ears/Nose/Mouth/Throat: Clear Oropharnyx, Mucous Membranes Moist Neck: NL Appearance and Movements; NL JVP, No Thyroid Enlargement, Masses Respiratory: Symmetrical Chest Expansion and Respiratory Effort, Clear to Percussion - scattered rales at bases Cardiovascular: NL Sounds; No Murmurs; No JVD, RRR, No Edema, - - distant heart sounds Extremities: No Clubbing, Cyanosis, - - 1+ edema BL Skin: No Nodules or Sclerosis, - - Both lower legs bright red, many 1-3 cm eschars. Tiny amount blood at edge of eschar on dorsum of L foot. Neurological: Alert and Oriented x 3, NL Sensation Result Diagrams: 07/28/16 05:20 07/29/16 04:59 Additional Lab and Data: Lab Results 07/27/16 07/27/16 07/27/16 Range/Units 16:05 16:05 16:05 WBC 8.2 (3.5-10.8) 10^3/ul RBC 5.43 H (4.0-5.4) 10^6/ul Hgb 16.2 (14.0-18.0) g/dl Hct 48 (42-52) % MCV 89 (80-94) fL MCH 30 (27-31) pg MCHC 34 (31-36) g/dl RDW 14 (10.5-15) % Plt Count 284 (150-450) 10^3/ul MPV 9 (7.4-10.4) um3 Neut % (Auto) 77.0 (38-83) % Lymph % (Auto) 13.9 L (25-47) % [place] % (Auto) 7.6 (1-9) % Eos % (Auto) 0.6 (0-6) % Baso % (Auto) 0.9 (0-2) % Absolute Neuts (auto) 6.3 (1.5-7.7) 10^3/ul Absolute Lymphs (auto) 1.1 (1.0-4.8) 10^3/ul Absolute Monos (auto) 0.6 (0-0.8) 10^3/ul Absolute Eos (auto) 0.1 (0-0.6) 10^3/ul Absolute Basos (auto) 0.1 (0-0.2) 10^3/ul Absolute Nucleated RBC 0.01 10^3/ul Nucleated RBC % 0.1 INR (Anticoag Therapy) 1.56 H (0.89-1.11) APTT 34.5 (26.0-36.3) seconds Sodium 135 (133-145) mmol/L Potassium 3.3 L (3.5-5.0) mmol/L Chloride 92 L (101-111) mmol/L Carbon Dioxide 34 H (22-32) mmol/L Anion Gap 9 (2-11) mmol/L BUN 17 (6-24) mg/dL Creatinine 0.92 (0.67-1.17) mg/dL Est GFR ( Amer) 103.4 (>60) Est GFR (Non-Af Amer) 80.4 (>60) BUN/Creatinine Ratio 18.5 (8-20) Glucose 140 H (70-100) mg/dL Lactic Acid (0.5-2.0) mmol/L Calcium 9.0 (8.6-10.3) mg/dL Total Bilirubin 1.10 H (0.2-1.0) mg/dL AST 34 (13-39) U/L ALT 38 (7-52) U/L Alkaline Phosphatase 104 (34-104) U/L Troponin I 1.19 H* (<0.04) ng/mL C-Reactive Protein 15.17 H (< 5.00) mg/L B-Natriuretic Peptide ( - 100) pg/mL Total Protein 7.0 (6.4-8.9) g/dL Albumin 3.6 (3.2-5.2) g/dL Globulin 3.4 (2-4) g/dL Albumin/Globulin Ratio 1.1 (1-3) 07/27/16 07/27/16 Range/Units 16:05 16:05 WBC (3.5-10.8) 10^3/ul RBC (4.0-5.4) 10^6/ul Hgb (14.0-18.0) g/dl Hct (42-52) % MCV (80-94) fL MCH (27-31) pg MCHC (31-36) g/dl RDW (10.5-15) % Plt Count (150-450) 10^3/ul MPV (7.4-10.4) um3 Neut % (Auto) (38-83) % Lymph % (Auto) (25-47) % [place] % (Auto) (1-9) % Eos % (Auto) (0-6) % Baso % (Auto) (0-2) % Absolute Neuts (auto) (1.5-7.7) 10^3/ul Absolute Lymphs (auto) (1.0-4.8) 10^3/ul Absolute Monos (auto) (0-0.8) 10^3/ul Absolute Eos (auto) (0-0.6) 10^3/ul Absolute Basos (auto) (0-0.2) 10^3/ul Absolute Nucleated RBC 10^3/ul Nucleated RBC % INR (Anticoag Therapy) (0.89-1.11) APTT (26.0-36.3) seconds Sodium (133-145) mmol/L Potassium (3.5-5.0) mmol/L Chloride (101-111) mmol/L Carbon Dioxide (22-32) mmol/L Anion Gap (2-11) mmol/L BUN (6-24) mg/dL Creatinine (0.67-1.17) mg/dL Est GFR ( Amer) (>60) Est GFR (Non-Af Amer) (>60) BUN/Creatinine Ratio (8-20) Glucose (70-100) mg/dL Lactic Acid 1.9 (0.5-2.0) mmol/L Calcium (8.6-10.3) mg/dL Total Bilirubin (0.2-1.0) mg/dL AST (13-39) U/L ALT (7-52) U/L Alkaline Phosphatase (34-104) U/L Troponin I (<0.04) ng/mL C-Reactive Protein (< 5.00) mg/L B-Natriuretic Peptide 1509 H ( - 100) pg/mL Total Protein (6.4-8.9) g/dL Albumin (3.2-5.2) g/dL Globulin (2-4) g/dL Albumin/Globulin Ratio (1-3) Assess/Plan/Problems-Billing Assessment: - Patient Problems (1) Cardiomyopathy Current Visit: Yes Status: Acute Code(s): I42.9 - CARDIOMYOPATHY, UNSPECIFIED SNOMED Code(s): 39033292 Comment: Started BB 05/28 (Pt refused dose 07/28), statin, spironolactone. Continue ASA. Torsemide 20 mg + 20 mg po . Discussed with Dr. Rivera. Cardiac cath 07/31. Lipid profile 07/31. (2) Cellulitis and abscess of leg Current Visit: Yes Status: Acute Code(s): L02.419 - CUTANEOUS ABSCESS OF LIMB, UNSPECIFIED; L03.119 - CELLULITIS OF UNSPECIFIED PART OF LIMB SNOMED Code(s): 877682914 Comment: Cellulitis only, both legs. Continue IV cefazolin. Pt encouraged to elevate his legs as much as possible. Slowly improving, will be appropriate for outpt oral tx by 07/30. (3) Pulmonary embolism Current Visit: Yes Status: Acute Code(s): I26.99 - OTHER PULMONARY EMBOLISM WITHOUT ACUTE COR PULMONALE SNOMED Code(s): 81643541 Comment: Rivaroxaban on hold pending results of stress test 07/31.
[2016-07-30 16:44] LABS: HDL Cholesterol 31.2 mg/dL
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
--- NOTE | 2016-07-30 18:52 | CONS ---
CONSULTATION NOTE:* ADDENDUM: DATE OF CONSULTATION: Labs from 07/29/16: Sodium 135, potassium 3.5, chloride 98, bicarb 31, BUN 16, creatinine 0.75, fasting glucose 132, hemoglobin A1c 6.5. Troponin #1 of 1.13, #2 of 1.06. BNP 1506. INR 1.56. PTT 35. From : White count 7.9, hemoglobin 15, hematocrit 45, platelets 210. [id number]/[facility] #: [id number] [facility] MEDICAL CENTERRadha
[2016-07-30] MEDS: Cephalexin CAP* 500 MG PO SCH (21:01)
[2016-07-30] MEDS: Atorvastatin* 20 MG TAB PO SCH (21:01)
[2016-07-31] MEDS ORDERED: fentaNYL* 50 MCG/ML 2 ML VIAL (100 MCG VIAL) ONE (09:22)
[2016-07-31] MEDS ORDERED: Midazolam* 1 MG/ML 5 ML VIAL (5 MG) ONE (09:22)
[2016-07-31] MEDS ORDERED: Heparin 2 UNITS/ML IVPREMIX* 3,000 ML IV ONE (09:23)
[2016-07-31] MEDS ORDERED: Lidocaine 1% INJ* 10 MG/ML 30 ML SDV ONE (09:23)
[2016-07-31] MEDS ORDERED: Iohexol 350 (CONTRAST) 200 ML MDV IV ONE (09:23)
[2016-07-31] MEDS: Aspirin EC Low Dose* 81 MG TAB.EC PO SCH (09:24)
[2016-07-31] MEDS: Cephalexin CAP* 500 MG PO SCH ×3 (09:24→21:01)
[2016-07-31] MEDS: Omeprazole CAP* 20 MG PO SCH (09:24)
[2016-07-31] MEDS: Potassium Chlor TAB* 10 MEQ TAB.ER PO SCH (09:25)
[2016-07-31] MEDS: Metoprolol Tartrate TAB* 25 MG PO SCH (09:26)
[2016-07-31] MEDS ORDERED: NS 0.9% 1000 ML* 1,000 ML IV SCH (11:45)
[2016-07-31] MEDS ORDERED: Metoprolol Succinate XL TAB* 25 MG PO ONE (15:30)
[2016-07-31] MEDS: Atorvastatin* 20 MG TAB PO SCH (16:09)
--- NOTE | 2016-07-31 16:39 | PN ---
Subjective Date of Service: 07/31/16 Interval History: No new c/o. He states he will go home and discuss the option of CABG with his family. Objective Active Medications: Acetaminophen (Tylenol Tab*) 650 mg PO Q6H PRN PRN Reason: PAIN Aspirin (Aspirin Ec Low Dose*) 81 mg PO DAILY [facility] Last Admin: 07/31/16 09:24 Dose: 81 mg Atorvastatin Calcium (Lipitor*) 20 mg PO 1700 [facility] Last Admin: 07/31/16 16:09 Dose: 20 mg Cephalexin HCl (Keflex Cap*) 500 mg PO TID [facility] Last Admin: 07/31/16 13:57 Dose: 500 mg Sodium Chloride (Ns 0.9% 1000 Ml*) 1,000 mls @ 75 mls/hr IV .per rate [facility] Stop: 07/31/16 18:00 Omeprazole (Prilosec Cap*) 20 mg PO DAILY [facility] Last Admin: 07/31/16 09:24 Dose: 20 mg Potassium Chloride (Klor Con Er Tab*) 10 meq PO DAILY [facility] Last Admin: 07/31/16 09:25 Dose: 10 meq Vital Signs 07/30/16 07/30/16 07/30/16 19:45 20:00 23:47 Temperature 98.2 F 98.3 F Pulse Rate 78 87 Respiratory 16 16 20 Rate Blood Pressure 110/60 95/64 (mmHg) O2 Sat by Pulse 100 97 Oximetry 07/31/16 07/31/16 07/31/16 04:06 06:42 07:53 Temperature 97.7 F 98.9 F Pulse Rate 85 86 Respiratory 24 16 16 Rate Blood Pressure 96/63 111/66 (mmHg) O2 Sat by Pulse 100 95 Oximetry 07/31/16 07/31/16 07/31/16 12:07 12:30 13:00 Temperature Pulse Rate 91 88 87 Respiratory 21 23 Rate Blood Pressure 116/64 (mmHg) O2 Sat by Pulse 94 96 95 Oximetry 07/31/16 07/31/16 07/31/16 13:03 13:15 13:30 Temperature Pulse Rate 89 89 93 Respiratory 25 24 25 Rate Blood Pressure 94/61 100/66 100/64 (mmHg) O2 Sat by Pulse 94 95 95 Oximetry 07/31/16 07/31/16 07/31/16 13:45 14:00 14:06 Temperature Pulse Rate 97 92 91 Respiratory 27 27 24 Rate Blood Pressure 103/68 96/65 102/73 (mmHg) O2 Sat by Pulse 97 97 96 Oximetry 07/31/16 07/31/16 07/31/16 14:30 15:00 15:30 Temperature Pulse Rate 92 87 96 Respiratory 29 23 22 Rate Blood Pressure 100/66 (mmHg) O2 Sat by Pulse 97 95 95 Oximetry 07/31/16 16:00 Temperature Pulse Rate 88 Respiratory 28 Rate Blood Pressure 97/65 (mmHg) O2 Sat by Pulse 96 Oximetry Oxygen Devices in Use Now: None Appearance: ALert, partly up in bed. In good spirits. Looks comfortable. Eyes: No Scleral Icterus Ears/Nose/Mouth/Throat: Clear Oropharnyx, Mucous Membranes Moist Neck: NL Appearance and Movements; NL JVP, No Thyroid Enlargement, Masses Respiratory: Symmetrical Chest Expansion and Respiratory Effort, Clear to Auscultation, Clear to Percussion Extremities: No Edema, No Clubbing, Cyanosis Skin: No Nodules or Sclerosis, - - erythema 50% improved since yesterday--less red, smaller area. Neurological: Alert and Oriented x 3, NL Sensation Result Diagrams: 07/28/16 05:20 07/29/16 04:59 Additional Lab and Data: Lab Results 07/27/16 07/27/16 07/27/16 Range/Units 16:05 16:05 16:05 WBC 8.2 (3.5-10.8) 10^3/ul RBC 5.43 H (4.0-5.4) 10^6/ul Hgb 16.2 (14.0-18.0) g/dl Hct 48 (42-52) % MCV 89 (80-94) fL MCH 30 (27-31) pg MCHC 34 (31-36) g/dl RDW 14 (10.5-15) % Plt Count 284 (150-450) 10^3/ul MPV 9 (7.4-10.4) um3 Neut % (Auto) 77.0 (38-83) % Lymph % (Auto) 13.9 L (25-47) % Gem % (Auto) 7.6 (1-9) % Eos % (Auto) 0.6 (0-6) % Baso % (Auto) 0.9 (0-2) % Absolute Neuts (auto) 6.3 (1.5-7.7) 10^3/ul Absolute Lymphs (auto) 1.1 (1.0-4.8) 10^3/ul Absolute Monos (auto) 0.6 (0-0.8) 10^3/ul Absolute Eos (auto) 0.1 (0-0.6) 10^3/ul Absolute Basos (auto) 0.1 (0-0.2) 10^3/ul Absolute Nucleated RBC 0.01 10^3/ul Nucleated RBC % 0.1 INR (Anticoag Therapy) 1.56 H (0.89-1.11) APTT 34.5 (26.0-36.3) seconds Sodium 135 (133-145) mmol/L Potassium 3.3 L (3.5-5.0) mmol/L Chloride 92 L (101-111) mmol/L Carbon Dioxide 34 H (22-32) mmol/L Anion Gap 9 (2-11) mmol/L BUN 17 (6-24) mg/dL Creatinine 0.92 (0.67-1.17) mg/dL Est GFR ( Amer) 103.4 (>60) Est GFR (Non-Af Amer) 80.4 (>60) BUN/Creatinine Ratio 18.5 (8-20) Glucose 140 H (70-100) mg/dL Lactic Acid (0.5-2.0) mmol/L Calcium 9.0 (8.6-10.3) mg/dL Total Bilirubin 1.10 H (0.2-1.0) mg/dL AST 34 (13-39) U/L ALT 38 (7-52) U/L Alkaline Phosphatase 104 (34-104) U/L Troponin I 1.19 H* (<0.04) ng/mL C-Reactive Protein 15.17 H (< 5.00) mg/L B-Natriuretic Peptide ( - 100) pg/mL Total Protein 7.0 (6.4-8.9) g/dL Albumin 3.6 (3.2-5.2) g/dL Globulin 3.4 (2-4) g/dL Albumin/Globulin Ratio 1.1 (1-3) 07/27/16 07/27/16 Range/Units 16:05 16:05 WBC (3.5-10.8) 10^3/ul RBC (4.0-5.4) 10^6/ul Hgb (14.0-18.0) g/dl Hct (42-52) % MCV (80-94) fL MCH (27-31) pg MCHC (31-36) g/dl RDW (10.5-15) % Plt Count (150-450) 10^3/ul MPV (7.4-10.4) um3 Neut % (Auto) (38-83) % Lymph % (Auto) (25-47) % Gem % (Auto) (1-9) % Eos % (Auto) (0-6) % Baso % (Auto) (0-2) % Absolute Neuts (auto) (1.5-7.7) 10^3/ul Absolute Lymphs (auto) (1.0-4.8) 10^3/ul Absolute Monos (auto) (0-0.8) 10^3/ul Absolute Eos (auto) (0-0.6) 10^3/ul Absolute Basos (auto) (0-0.2) 10^3/ul Absolute Nucleated RBC 10^3/ul Nucleated RBC % INR (Anticoag Therapy) (0.89-1.11) APTT (26.0-36.3) seconds Sodium (133-145) mmol/L Potassium (3.5-5.0) mmol/L Chloride (101-111) mmol/L Carbon Dioxide (22-32) mmol/L Anion Gap (2-11) mmol/L BUN (6-24) mg/dL Creatinine (0.67-1.17) mg/dL Est GFR ( Amer) (>60) Est GFR (Non-Af Amer) (>60) BUN/Creatinine Ratio (8-20) Glucose (70-100) mg/dL Lactic Acid 1.9 (0.5-2.0) mmol/L Calcium (8.6-10.3) mg/dL Total Bilirubin (0.2-1.0) mg/dL AST (13-39) U/L ALT (7-52) U/L Alkaline Phosphatase (34-104) U/L Troponin I (<0.04) ng/mL C-Reactive Protein (< 5.00) mg/L B-Natriuretic Peptide 1509 H ( - 100) pg/mL Total Protein (6.4-8.9) g/dL Albumin (3.2-5.2) g/dL Globulin (2-4) g/dL Albumin/Globulin Ratio (1-3) Assess/Plan/Problems-Billing Assessment: - Patient Problems (1) Cardiomyopathy Current Visit: Yes Status: Acute Code(s): I42.9 - CARDIOMYOPATHY, UNSPECIFIED SNOMED Code(s): 88915006 Comment: Started BB 05/28 (Pt refused dose 07/28), statin, spironolactone. Continue ASA. Torsemide 20 mg + 20 mg po 07/30. (2) Cellulitis and abscess of leg Current Visit: Yes Status: Acute Code(s): L02.419 - CUTANEOUS ABSCESS OF LIMB, UNSPECIFIED; L03.119 - CELLULITIS OF UNSPECIFIED PART OF LIMB SNOMED Code(s): 126116272 Comment: Cellulitis only, both legs. Continue po cephalexin. Pt encouraged to elevate his legs as much as possible. Slowly improving, will be appropriate for outpt oral tx by 07/30. (3) Pulmonary embolism Current Visit: Yes Status: Acute Code(s): I26.99 - OTHER PULMONARY EMBOLISM WITHOUT ACUTE COR PULMONALE SNOMED Code(s): 79660675 Comment: Rivaroxaban on hold pending results of stress test 07/31.
--- NOTE | 2016-07-31 18:54 | PN ---
Progress Note - Progress Note Note: I spoke on the phone twice today with Dr. Black. She contacted NS Dr. Sky Jiménez at [facility] who will review the CT scans. Address [address] [facility] [address].
[2016-08-01 05:03] LABS: Hematocrit 41 % (42-52); Hemoglobin 13.9 g/dl (14.0-18.0); Mean Corpuscular HGB Conc 34 g/dl (31-36); Mean Corpuscular Hemoglobin 30 pg (27-31); Mean Corpuscular Volume 89 fL (80-94); Mean Platelet Volume 9 um3 (7.4-10.4); Red Blood Count 4.61 10^6/ul (4.0-5.4); Red Cell Distribution Width 14 % (10.5-15); White Blood Count 8.5 10^3/ul (3.5-10.8)
[2016-08-01 05:21] LABS: BUN/Creatinine Ratio 31.9 (8-20); Calcium 8.7 mg/dL (8.6-10.3); EGFR African American 144.1 (>60); EGFR Non-African American 112.1 (>60)
--- NOTE | 2016-08-01 07:50 | CATH ---
CC: Dr. Nuzhat Rivera CARDIAC CATHETERIZATION REPORT: DATE OF PROCEDURE: 07/31/16 PROCEDURE: Cardiac catheterization including coronary angiography, left ventriculography, and left heart catheterization. INDICATION: Cardiomyopathy, chest pain, elevated troponin. The patient is a 75-year-old gentleman who was admitted to the hospital with chest pain. He had rec ently been diagnosed with pulmonary embolism; however, he came to the hospital because of increasing shortness of breath. The patient's echocardiogram showed severely reduced LV systolic function, ej ection fraction of 20% to 25%. Cardiac catheterization was recommended. DESCRIPTION OF PROCEDURE: The patient was brought to the cardiac catheterization lab in a fasting s hartman. Informed consent have been obtained prior to the procedure. All labs were reviewed. [facility] ient's Eliquis had been held for 24 hours. The patient was placed supine on the cardiac catheteriza tion table. Both femoral areas were cleaned and draped in the usual fashion. 1% lidocaine was used for local anesthesia. The right femoral artery was entered by a modified Seldinger technique and a 6-[place] Zealander sheath introducer was placed. The patient underwent cardiac catheterization including a l eft ventriculogram and coronary angiography using a 6-[place] pigtail catheter, 6-[place] JL5 catheter , and a 6-[place] JR4 catheter. During the procedure, there was a technical problem with the [facility] ardiac catheterization lab, the fluoro unit went down after the left coronary system was injected. The patient was transferred to a different cardiac catheterization lab for the completion of the abisai dy. This created no complications. The patient tolerated the procedure well. There were no compli cations. 105 cc of Omnipaque dye was used. A total of 2.4 minutes of fluoro time was used. FINDINGS: HEMODYNAMICS: Central aortic blood pressure 101/61 with a mean of 79. Left ventricular pressure 99 /10 with an end-diastolic pressure of 13. LEFT VENTRICULOGRAM: Left ventricle was mildly dilated. Overall systolic function was severely red uced. Estimated ejection fraction 25%. There was global hypokinesis. There was no mitral regurgi tation. Aortic valve and ascending aorta appeared normal. CORONARY ARTERIES: 1. Left main artery. The left main was normal in size. It bifurcated into the LAD and circumflex. There was a distal 10% stenosis to the left main artery. 2. Left anterior descending artery. The LAD was normal in size. It gave off 3 small diagonal bran ches off the LAD. The LAD itself had a mid vessel 95% stenosis. There was diffuse disease in the mi d vessel. The distal LAD had sequential 25% to 50% stenosis throughout. The LAD itself ended past the apex. 3. Left circumflex artery. The circumflex artery was normal in size. It gave off 2 obtuse margina l branches. The left circumflex artery itself had a 10% stenosis at the proximal portion. The ganesh betsey of the vessel was without disease. The first obtuse marginal was a large vessel. It was comp letely occluded at its origin. There was left to left collaterals to the distal OM vessel from the LAD. 4. Right coronary artery. The RCA was a large dominant vessel, given off the PDA. The proximal LAD had a 99% stenosis. There was a discrete stenosis. There was MITCHELL 2 flow after the stenosis itsel f. The remainder of the vessel was without disease. IMPRESSION: 1. Severely reduced LV systolic function, ejection fraction of 25% with severe global hypokin esis. 2. Critical disease to the mid LAD. There was a 90% stenosis to the mid LAD. 3. 100% occlusion to the large OM1 vessel off the left circumflex artery. 4. 99% stenosis to the proximal right coronary artery with MITCHELL 2 flow after the stenosis. RECOMMENDATIONS: The patient will be recommended for coronary bypass surgery and continued medical management. [id number]/[facility] #: [id number]
[2016-08-01] MEDS: Potassium Chlor TAB* 10 MEQ TAB.ER PO SCH (08:43)
[2016-08-01] MEDS: Omeprazole CAP* 20 MG PO SCH (08:44)
[2016-08-01] MEDS: Aspirin EC Low Dose* 81 MG TAB.EC PO SCH (08:44)
[2016-08-01] MEDS: Cephalexin CAP* 500 MG PO SCH ×2 (08:44→13:32)
[2016-08-01] MEDS ORDERED: Spironolactone TAB* 25 MG PO SCH (13:10)
[2016-08-01 13:55] VITALS: BP 101/61
[2016-08-01] MEDS ORDERED: Torsemide TAB* 20 MG PO SCH (14:00)
[2016-08-01] MEDS ORDERED: Rivaroxaban TAB(*) 20 MG TAB PO SCH (14:00)
--- NOTE | 2016-08-01 18:48 | DCNOTE ---
Subjective Date of Service: 08/01/16 Interval History: Feels well, no c/o. No chest pain, SOB, cough. Objective Vital Signs 07/31/16 07/31/16 07/31/16 19:00 19:30 20:00 Temperature Pulse Rate 87 85 90 Respiratory 25 30 18 Rate Blood Pressure 102/61 101/71 (mmHg) O2 Sat by Pulse 92 98 92 Oximetry 07/31/16 07/31/16 08/01/16 20:07 23:15 03:44 Temperature 98.4 F 99.3 F Pulse Rate 86 84 Respiratory 32 20 16 Rate Blood Pressure 104/64 104/62 (mmHg) O2 Sat by Pulse 99 97 Oximetry 08/01/16 08/01/16 08/01/16 07:37 08:15 11:45 Temperature 99.5 F 99.0 F Pulse Rate 84 89 Respiratory 18 16 16 Rate Blood Pressure 97/73 101/61 (mmHg) O2 Sat by Pulse 98 97 Oximetry Oxygen Devices in Use Now: None Appearance: Alert, sitting on the edge of his bed. In good spirits. Looks comfortable. Eyes: No Scleral Icterus Ears/Nose/Mouth/Throat: Clear Oropharnyx, Mucous Membranes Moist Neck: NL Appearance and Movements; NL JVP, No Thyroid Enlargement, Masses Respiratory: Symmetrical Chest Expansion and Respiratory Effort, Clear to Auscultation, Clear to Percussion Extremities: No Clubbing, Cyanosis, - - Tr edema both legs, much improved since admission. Skin: - - Erythema both lower legs somewhat better. Multiple eschars no change. Neurological: Alert and Oriented x 3, NL Sensation Result Diagrams: 08/01/16 04:48 08/01/16 04:48 Additional Lab and Data: Lab Results 07/27/16 07/27/16 07/27/16 Range/Units 16:05 16:05 16:05 WBC 8.2 (3.5-10.8) 10^3/ul RBC 5.43 H (4.0-5.4) 10^6/ul Hgb 16.2 (14.0-18.0) g/dl Hct 48 (42-52) % MCV 89 (80-94) fL MCH 30 (27-31) pg MCHC 34 (31-36) g/dl RDW 14 (10.5-15) % Plt Count 284 (150-450) 10^3/ul MPV 9 (7.4-10.4) um3 Neut % (Auto) 77.0 (38-83) % Lymph % (Auto) 13.9 L (25-47) % [place] % (Auto) 7.6 (1-9) % Eos % (Auto) 0.6 (0-6) % Baso % (Auto) 0.9 (0-2) % Absolute Neuts (auto) 6.3 (1.5-7.7) 10^3/ul Absolute Lymphs (auto) 1.1 (1.0-4.8) 10^3/ul Absolute Monos (auto) 0.6 (0-0.8) 10^3/ul Absolute Eos (auto) 0.1 (0-0.6) 10^3/ul Absolute Basos (auto) 0.1 (0-0.2) 10^3/ul Absolute Nucleated RBC 0.01 10^3/ul Nucleated RBC % 0.1 INR (Anticoag Therapy) 1.56 H (0.89-1.11) APTT 34.5 (26.0-36.3) seconds Sodium 135 (133-145) mmol/L Potassium 3.3 L (3.5-5.0) mmol/L Chloride 92 L (101-111) mmol/L Carbon Dioxide 34 H (22-32) mmol/L Anion Gap 9 (2-11) mmol/L BUN 17 (6-24) mg/dL Creatinine 0.92 (0.67-1.17) mg/dL Est GFR ( Amer) 103.4 (>60) Est GFR (Non-Af Amer) 80.4 (>60) BUN/Creatinine Ratio 18.5 (8-20) Glucose 140 H (70-100) mg/dL Lactic Acid (0.5-2.0) mmol/L Calcium 9.0 (8.6-10.3) mg/dL Total Bilirubin 1.10 H (0.2-1.0) mg/dL AST 34 (13-39) U/L ALT 38 (7-52) U/L Alkaline Phosphatase 104 (34-104) U/L Troponin I 1.19 H* (<0.04) ng/mL C-Reactive Protein 15.17 H (< 5.00) mg/L B-Natriuretic Peptide ( - 100) pg/mL Total Protein 7.0 (6.4-8.9) g/dL Albumin 3.6 (3.2-5.2) g/dL Globulin 3.4 (2-4) g/dL Albumin/Globulin Ratio 1.1 (1-3) 07/27/16 07/27/16 Range/Units 16:05 16:05 WBC (3.5-10.8) 10^3/ul RBC (4.0-5.4) 10^6/ul Hgb (14.0-18.0) g/dl Hct (42-52) % MCV (80-94) fL MCH (27-31) pg MCHC (31-36) g/dl RDW (10.5-15) % Plt Count (150-450) 10^3/ul MPV (7.4-10.4) um3 Neut % (Auto) (38-83) % Lymph % (Auto) (25-47) % [place] % (Auto) (1-9) % Eos % (Auto) (0-6) % Baso % (Auto) (0-2) % Absolute Neuts (auto) (1.5-7.7) 10^3/ul Absolute Lymphs (auto) (1.0-4.8) 10^3/ul Absolute Monos (auto) (0-0.8) 10^3/ul Absolute Eos (auto) (0-0.6) 10^3/ul Absolute Basos (auto) (0-0.2) 10^3/ul Absolute Nucleated RBC 10^3/ul Nucleated RBC % INR (Anticoag Therapy) (0.89-1.11) APTT (26.0-36.3) seconds Sodium (133-145) mmol/L Potassium (3.5-5.0) mmol/L Chloride (101-111) mmol/L Carbon Dioxide (22-32) mmol/L Anion Gap (2-11) mmol/L BUN (6-24) mg/dL Creatinine (0.67-1.17) mg/dL Est GFR ( Amer) (>60) Est GFR (Non-Af Amer) (>60) BUN/Creatinine Ratio (8-20) Glucose (70-100) mg/dL Lactic Acid 1.9 (0.5-2.0) mmol/L Calcium (8.6-10.3) mg/dL Total Bilirubin (0.2-1.0) mg/dL AST (13-39) U/L ALT (7-52) U/L Alkaline Phosphatase (34-104) U/L Troponin I (<0.04) ng/mL C-Reactive Protein (< 5.00) mg/L B-Natriuretic Peptide 1509 H ( - 100) pg/mL Total Protein (6.4-8.9) g/dL Albumin (3.2-5.2) g/dL Globulin (2-4) g/dL Albumin/Globulin Ratio (1-3) Assess/Plan/Problems-Billing Assessment: - Patient Problems (1) Cardiomyopathy Status: Acute Code(s): I42.9 - CARDIOMYOPATHY, UNSPECIFIED SNOMED Code(s): 04474940 Comment: Ischemic cardiomyopathy, likely recent ND. Discharge on BB, statin, spironolactone, ASA, torsemide [address] Martin. (2) Cellulitis and abscess of leg Status: Acute Code(s): L02.419 - CUTANEOUS ABSCESS OF LIMB, UNSPECIFIED; L03.119 - CELLULITIS OF UNSPECIFIED PART OF LIMB SNOMED Code(s): 280215181 Comment: Cellulitis only, both legs. Continue po cephalexin, to finish his supply at home plus I transmitted rx for 6 more. (3) Pulmonary embolism Status: Acute Code(s): I26.99 - OTHER PULMONARY EMBOLISM WITHOUT ACUTE COR PULMONALE SNOMED Code(s): 38838151 Comment: Resume rivaroxaban. CTA report from [facility] PE present.
--- NOTE | 2016-08-01 18:55 | PN ---
Progress Note - Progress Note Note: Time spent on discharge 55 minutes.
[2016-08-01] MEDS ORDERED: Metoprolol Tartrate TAB* 25 MG PO SCH (21:00)
--- NOTE | 2016-08-02 17:59 | DS ---
DISCHARGE SUMMARY: DATE OF ADMISSION: 07/27/16 DATE OF DISCHARGE: 08/01/16 HISTORY: This 75-year-old man presented with bilateral lower extremity swelling and redness. He has a long history of cellulitis of his legs; however , this admission was quite a bit different than previous ones. He was admitted to [place] on 07/15 with shortness of breath, also chest pain, cough. He had a CTA of the chest, which showed pulmonary embolism. He was started on anticoagulant and was discharged on rivaroxaban. Shortly after discharge, he began having swelling of his legs to a severe degree and presented to our emergency room. His BNP was 1509. Echocardiogram showed global hypokinesis with marked decrease in contractility and an estimated ejection fraction of 20% to 25%. He was treated with ceftriaxone for cellulitis of the legs. He was given diuretics. He responded well to oral torsemide. Combination of diuretics and elevation of his legs gave marked improvement in his edema and by the time of discharge, it was virtually gone. The erythema had improved markedly. He had multiple eschars on his legs, which really did not change throughout his hospital stay. His troponin was 1.19 on admission and fell to 1.06 eight hours later. He underwent cardiac catheterization on 07/31/16. This showed triple vessel coronary disease and it was recommended he have a coronary bypass graft. The patient wanted to talk to his family and think about this for a while. He was sent home with a LifeVest. While in the hospital, he was started on beta ori, aspirin, statin, spironolactone, as well as torsemide. PEGGY inhibitor was withheld at this time because of low blood pressures, but possibly could be given later. His last blood pressure here was 101/61, which was about his average blood pressure, although many of them were in the 90s systolic. FINAL DIAGNOSES: 1. Acute systolic congestive heart failure. 2. Coronary artery disease, likely acute myocardial infarction. I note he did not have a troponin measured at [facility]. 3. Possible pulmonary embolism. 4. Cellulitis of lower legs. DISCHARGE MEDICATIONS: 1. Aspirin 81 mg daily. 2. Atorvastatin 20 mg daily at 1700. 3. Cephalexin 500 mg t.i.d. 4. Spironolactone 25 mg daily. 5. Metoprolol 12.5 mg b.i.d. 6. Rivaroxaban 20 mg daily. 7. Torsemide 20 mg daily. 8. Rivaroxaban 15 mg b.i.d., the 20 mg dose will start when he finishes his supply of 15 mg. 9. Pantoprazole 40 mg daily. The patient will have a BNP in 3 days. CC: Dr. Martin * [id number] #: [id number] MTDD
== END 2016-08-01 15:20 | disposition home or self-care (01) | DRG 280 ==
LOC: ED 14:57 → MEDTELE 21:57
PROVIDERS: ADMIT Hospitalist; ATTEND Internal Medicine
PROC: B213YZZ Fluoroscopy of Multiple Coronary Artery Bypass Grafts using Other Contrast (ICD-10-PCS; 2016-07-31)
PROC: B215YZZ Fluoroscopy of Left Heart using Other Contrast (ICD-10-PCS; 2016-07-31)
PROC: 4A023N7 Measurement of Cardiac Sampling and Pressure, Left Heart, Percutaneous Approach (ICD-10-PCS; principal; 2016-07-31 09:30)
DX: I42.9 Cardiomyopathy, unspecified (principal); I50.21 Acute systolic (congestive) heart failure; I21.4 Non-ST elevation (NSTEMI) myocardial infarction; I26.99 Other pulmonary embolism without acute cor pulmonale; L03.116 Cellulitis of left lower limb; L03.115 Cellulitis of right lower limb; I25.10 Atherosclerotic heart disease of native coronary artery without angina pectoris; R06.01 Orthopnea; Z82.49 Family history of ischemic heart disease and other diseases of the circulatory system; Z79.01 Long term (current) use of anticoagulants; Z79.899 Other long term (current) drug therapy
CPT/HCPCS: 36415; 71010; 80048; 80053; 80061; 83036; 83605; 83880; 84484; 85025; 85610; 85730; 86140; 93005; 93306; 93458; 93970; A9270-GY; C1760; C1887; J0690; J1644; J1940; J2250; J3010